=== PATIENT | female | born 1995 | race African-American/Black ===

== ENCOUNTER 2016-08-31 09:05 | Day surgery (SDC) | payer OTHER ==
[~2016-08-31] VITALS: Ht 154.9 cm; Wt 58.0 kg
[~2016-08-31 09:05] MED LIST: BACTROBAN OINTM22 GM TP; DIFLUCAN150 MG PO
[2016-08-31 10:04] VITALS: BP 122/71
[2016-08-31] MEDS ORDERED: MOTRIN800 MG PO (11:59)
[2016-08-31] MEDS ORDERED: DOXYCYCLINE MO100 M1 PO (12:01)
[2016-08-31 13:05] VITALS: BP 95/63
[2016-08-31 14:35] VITALS: BP 94/46
== END 2016-08-31 14:45 | disposition home or self-care (01) ==
LOC: SDC 09:05
PROC: 10D17ZZ Extraction of Products of Conception, Retained, Via Natural or Artificial Opening (ICD-10-PCS; principal; 2016-08-31)
DX: O02.1 Missed abortion (principal)
CPT/HCPCS: 86850; 86900; 86901; 88305; J1100; J1885; J2250; J2405; J2590; J3010

== ENCOUNTER 2016-09-29 17:25 | Observation (INO) | payer OTHER ==
[~2016-09-29] VITALS: Ht 157.5 cm; Wt 60.6 kg
[~2016-09-29 17:25] MED LIST changes: +DOXYCYCLINE MO100 M1 PO; +MOTRIN800 MG PO
[2016-09-29 18:38] LABS: HEMATOCRIT 35.6 % (36.0-46.0); MCH 22.7 PG (29.0-34.0); MCHC 32.9 G/DL (30.0-36.0); MEAN PLAT.VOLUME 10.1 uM^3 (9.5-12.4); PLATELET COUNT 277 K/uL (156-360); RBC DIS.WIDTH-CV 13.6 % (11.8-14.6); RBC DIS.WIDTH-SD 33.5 % (39-53); RED BLOOD COUNT 5.16 M/uL (3.80-5.20); WHITE BLOOD COUNT 10.2 K/uL (4.1-10.2)
[2016-09-29 18:56] LABS: CHLORIDE 108 mEq/L (99-109); POTASSIUM 3.8 mEq/L (3.7-5.4); SODIUM 140 mEq/L (136-147)
[2016-09-29 18:58] LABS: GLUCOSE 72 mg/dL (70-99)
[2016-09-29 19:00] LABS: ANION GAP 11 MEQ/L (2-14); TOTAL BILIRUBIN 0.7 mg/dL (0.0-1.0)
[2016-09-29 19:02] LABS: ALKALINE PHOSPHATASE 80 IU/L (3-129); GFR ESTIMATE (CALCULATED) > 59 mL/min/
[2016-09-29 19:03] LABS: UREA NITROGEN (BUN) 9 mg/dL (9-23)
[2016-09-29 19:12] LABS: QUANTITATIVE HCG 41.3 MIU/ML
[2016-09-29 19:16] LABS: ADD MIUA? YES; BILIRUBIN NEGATIVE; BLOOD NEGATIVE; COLOR YELLOW ((YELLOW)); GLUCOSE (STRIP) NEGATIVE; KETONES 80; LEUKOCYTES SMALL; NITRITE NEGATIVE; PROTEIN (STRIP) 30; SPECIFIC GRAVITY 1.028 (1.000-1.030); UROBILINOGEN 0.2 MG/DL (0.2-1.0)
[2016-09-29 19:18] LABS: BACTERIA RARE /HPF; CASTS NONE SEEN /LPF; CRYSTALS NONE SEEN; EPITHELIAL CELLS RARE /HPF; MUCUS 1+ /LPF; UCUL ADDED? NO; WHITE BLOOD CELLS 0-5 /HPF (0-5)
[2016-09-29 20:32] LABS: LIPASE 15 U/L (1.0-51.0)
[2016-09-30 01:27] LABS: HEMATOCRIT 32.6 % (36.0-46.0); MCH 22.1 PG (29.0-34.0); MCHC 31.9 G/DL (30.0-36.0); MCV 69.2 FL (83-99); MEAN PLAT.VOLUME 9.7 uM^3 (9.5-12.4); PLATELET COUNT 285 K/uL (156-360); RBC DIS.WIDTH-CV 13.5 % (11.8-14.6); RBC DIS.WIDTH-SD 33.2 % (39-53); RED BLOOD COUNT 4.71 M/uL (3.80-5.20); WHITE BLOOD COUNT 8.2 K/uL (4.1-10.2)
[2016-09-30 03:05] VITALS: BP 121/66
[2016-09-30 07:28] LABS: MCH 22.4 PG (29.0-34.0); MCHC 32.1 G/DL (30.0-36.0); MCV 69.7 FL (83-99); MEAN PLAT.VOLUME 10.3 uM^3 (9.5-12.4); PLATELET COUNT 228 K/uL (156-360); RBC DIS.WIDTH-CV 13.3 % (11.8-14.6); RBC DIS.WIDTH-SD 34.1 % (39-53); RED BLOOD COUNT 4.02 M/uL (3.80-5.20)
[2016-09-30 07:40] LABS: EOSINOPHIL (%) 0.4 % (0-5); LYMPHOCYTE COUNT 3.8 K/uL (1.0-2.8); MONOCYTE (%) 7.8 % (3-12); MONOCYTE COUNT 0.6 K/uL (0-0.8); NEUTROPHIL (%) 37.9 % (45-76); NEUTROPHIL COUNT 2.7 K/uL (1.8-6.4)
[2016-09-30 08:00] VITALS: BP 138/79
[2016-09-30] MEDS ORDERED: ENDOCET 5-3251 EACH PO (10:30)
[2016-09-30] MEDS ORDERED: IBUPROFEN800 MG PO (10:30)
[2016-09-30] MEDS ORDERED: FERROUS SULFAT325 MG PO (10:30)
[2016-09-30 13:44] VITALS: BP 98/61
[2016-09-30 14:42] LABS: HEMATOCRIT 32.4 % (36.0-46.0); MCHC 31.5 G/DL (30.0-36.0); MCV 69.8 FL (83-99); MEAN PLAT.VOLUME 10.1 uM^3 (9.5-12.4); PLATELET COUNT 250 K/uL (156-360); RBC DIS.WIDTH-CV 13.5 % (11.8-14.6); RBC DIS.WIDTH-SD 34.2 % (39-53); RED BLOOD COUNT 4.64 M/uL (3.80-5.20); WHITE BLOOD COUNT 7.2 K/uL (4.1-10.2)
[2016-09-30 14:58] LABS: EOSINOPHIL (%) 0 % (0-5); IMMATURE GRANULOCYTE (%) 0.1 % (0.0-0.7); LYMPHOCYTE COUNT 0.8 K/uL (1.0-2.8); MONOCYTE (%) 1.5 % (3-12); MONOCYTE COUNT 0.1 K/uL (0-0.8); NEUTROPHIL (%) 86.9 % (45-76); NEUTROPHIL COUNT 6.3 K/uL (1.8-6.4)
== END 2016-09-30 18:18 | disposition home or self-care (01) ==
LOC: EME 17:25 → EDOF 09-30 01:49 → 2EASTP 09-30 02:49
PROVIDERS: Obstetrics & Gynecology; Physician Assistant
DX: N83.201 Unspecified ovarian cyst, right side (principal); K66.1 Hemoperitoneum; Z82.49 Family history of ischemic heart disease and other diseases of the circulatory system; Z80.0 Family history of malignant neoplasm of digestive organs; Z83.49 Family history of other endocrine, nutritional and metabolic diseases
CPT/HCPCS: 74177; 76856; 80053; 81003; 82948; 83690; 84702; 85025; 85025 91; 85027; 86850; 86900; 86901; 86920; 99281; 99285; G0378; J1100; J1170; J1885; J2175; J2250; J2405; J3010; J7030; J7120; S0020

== ENCOUNTER 2016-10-27 19:24 | Emergency (ER) | payer OTHER ==
[~2016-10-27] VITALS: Ht 154.9 cm; Wt 62.2 kg
[~2016-10-27 19:24] MED LIST changes: +ENDOCET 5-3251 EACH PO; +FERROUS SULFAT325 MG PO; +IBUPROFEN800 MG PO
[2016-10-27 23:14] LABS: HEMATOCRIT 34.7 % (36.0-46.0); MCH 21.9 PG (29.0-34.0); MCV 68.6 FL (83-99); MEAN PLAT.VOLUME 11.2 uM^3 (9.5-12.4); PLATELET COUNT 286 K/uL (156-360); RBC DIS.WIDTH-CV 13.2 % (11.8-14.6); RBC DIS.WIDTH-SD 31.5 % (39-53); RED BLOOD COUNT 5.06 M/uL (3.80-5.20)
[2016-10-27 23:23] LABS: CHLORIDE 108 mEq/L (99-109); POTASSIUM 3.8 mEq/L (3.7-5.4); SODIUM 139 mEq/L (136-147)
[2016-10-27 23:26] LABS: GLUCOSE 89 mg/dL (70-99)
[2016-10-27 23:27] LABS: ANION GAP 9 MEQ/L (2-14); TOTAL BILIRUBIN 0.4 mg/dL (0.0-1.0)
[2016-10-27 23:29] LABS: ALKALINE PHOSPHATASE 85 IU/L (3-129); GFR ESTIMATE (CALCULATED) > 59 mL/min/
[2016-10-27 23:30] LABS: UREA NITROGEN (BUN) 11 mg/dL (9-23)
[2016-10-27 23:38] LABS: QUANTITATIVE HCG < 4.0 MIU/ML
[2016-10-28 00:09] LABS: EOSINOPHIL (%) 0.8 % (0-5); EOSINOPHIL COUNT 0.1 K/uL (0-0.3); HEMATOLOGY COMMENT 1 SMEAR COMPATIBLE; IMMATURE GRANULOCYTE (%) 0.1 % (0.0-0.7); IMMATURE GRANULOCYTE COUNT 0.1 K/uL; LYMPHOCYTE COUNT 5.4 K/uL (1.0-2.8); MONOCYTE (%) 8.7 % (3-12); MONOCYTE COUNT 0.8 K/uL (0-0.8); NEUTROPHIL (%) 30.7 % (45-76); NEUTROPHIL COUNT 2.8 K/uL (1.8-6.4); PLAT.SUFFICIENCY ADEQUATE
[2016-10-28 01:09] LABS: ADD MIUA? YES; BILIRUBIN NEGATIVE; BLOOD NEGATIVE; COLOR STRAW ((YELLOW)); GLUCOSE (STRIP) NEGATIVE; KETONES 5; LEUKOCYTES SMALL; NITRITE NEGATIVE; PROTEIN (STRIP) NEGATIVE; SPECIFIC GRAVITY 1.006 (1.000-1.030); UROBILINOGEN 0.2 MG/DL (0.2-1.0)
[2016-10-28 01:24] LABS: BACTERIA RARE /HPF; EPITHELIAL CELLS RARE /HPF; MUCUS TRACE /LPF; RED BLOOD CELLS 0-5 /HPF (0-5); UCUL ADDED? NO; WHITE BLOOD CELLS 0-5 /HPF (0-5)
[2016-10-28] MEDS ORDERED: ZOFRAN ODT4 MG PO (02:04)
[2016-10-28] MEDS ORDERED: PERCOCET 5/31 TABLET PO (02:04)
[2016-10-28 02:13] VITALS: BP 106/64
== END 2016-10-28 02:17 | disposition home or self-care (01) ==
LOC: EME 19:24
PROVIDERS: Physician Assistant
DX: R10.2 Pelvic and perineal pain (principal)
CPT/HCPCS: 76856; 80053; 81003; 84702; 85025; 99281; 99285; J1885; J2270; J2405; J7030

== ENCOUNTER 2017-07-23 00:24 | Emergency (ER) | payer OTHER ==
[~2017-07-23] VITALS: Ht 154.9 cm; Wt 70.5 kg
[~2017-07-23 00:24] MED LIST changes: +MACROBID100 MG PO; +MOTRIN600 MG PO; +PERCOCET 5/31 TABLET PO; +PYRIDIUM200 MG PO; +ZOFRAN ODT4 MG PO
[2017-07-23] MEDS ORDERED: VALTREX1000 MG PO (01:19)
[2017-07-23 01:51] VITALS: BP 148/89
== END 2017-07-23 01:53 | disposition home or self-care (01) ==
LOC: EME 00:24
DX: A60.00 Herpesviral infection of urogenital system, unspecified (principal)
CPT/HCPCS: 99281; 99284

== ENCOUNTER 2017-07-24 18:45 | Emergency (ER) | payer OTHER ==
[~2017-07-24] VITALS: Ht 154.9 cm; Wt 69.2 kg
[~2017-07-24 18:45] MED LIST changes: +VALTREX1000 MG PO
[2017-07-24 18:56] VITALS: BP 121/73
== END 2017-07-24 19:57 | disposition left against medical advice (07) ==
LOC: EME 18:45
DX: M79.604 Pain in right leg (principal); M79.605 Pain in left leg; M79.672 Pain in left foot; M79.671 Pain in right foot; Z53.21 Procedure and treatment not carried out due to patient leaving prior to being seen by health care provider

== ENCOUNTER 2017-07-26 01:22 | Emergency (ER) | payer OTHER ==
[~2017-07-26] VITALS: Ht 154.9 cm; Wt 71.1 kg
[2017-07-26 03:21] LABS: HEMATOCRIT 34.2 % (36.0-46.0); MCH 22.3 PG (29.0-34.0); PLATELET COUNT 275 K/uL (156-360); RBC DIS.WIDTH-CV 13.7 % (11.8-14.6); RBC DIS.WIDTH-SD 35.3 % (39-53); RED BLOOD COUNT 4.75 M/uL (3.80-5.20); WHITE BLOOD COUNT 7.5 K/uL (4.1-10.2)
[2017-07-26 03:32] LABS: CHLORIDE 110 mEq/L (99-109); SODIUM 139 mEq/L (136-147)
[2017-07-26 03:33] LABS: MAGNESIUM 1.8 mg/dL (1.3-2.7)
[2017-07-26 03:35] LABS: GLUCOSE 104 mg/dL (70-99)
[2017-07-26 03:36] LABS: ANION GAP 6 MEQ/L (2-14)
[2017-07-26 03:37] LABS: TOTAL BILIRUBIN 0.1 mg/dL (0.0-1.0)
[2017-07-26 03:38] LABS: ALKALINE PHOSPHATASE 79 IU/L (3-129)
[2017-07-26 03:39] LABS: GFR ESTIMATE (CALCULATED) > 59 mL/min/
[2017-07-26 03:40] LABS: UREA NITROGEN (BUN) 8 mg/dL (9-23)
[2017-07-26 03:48] LABS: QUANTITATIVE HCG < 4.0 MIU/ML
[2017-07-26 04:20] LABS: ABS NEUTROPHIL COUNT 1.8; ATYPICAL LYMPHOCYTE 27.4 %; EOSINOPHIL ABS CT 0.2; EOSINOPHILS 2.7 % (0-5.0); HELMET CELLS 1+; HYPOCHROMASIA 1+; INSTRUMENT ABS NEUTROPHIL CT 2.5 K/uL; LYMPHOCYTES 41.6 % (15.0-45.0); MACROCYTES 1+; PLAT.SUFFICIENCY ADEQUATE; POLYCHROMASIA 1+; SEG.NEUTROPHILS 23.9 % (46.0-76.0); TARGET CELLS 1+
[2017-07-26] MEDS ORDERED: NORCO 5/3251 TABLET PO (05:02)
[2017-07-26] MEDS ORDERED: LMX 430 GM TP (05:02)
[2017-07-26] MEDS ORDERED: FAMCICLOVIR250 MG PO (05:03)
[2017-07-26 05:10] VITALS: BP 96/55
== END 2017-07-26 05:17 | disposition home or self-care (01) ==
LOC: EME 01:22
PROVIDERS: Emergency Medicine
DX: M79.671 Pain in right foot (principal); M79.672 Pain in left foot; A60.00 Herpesviral infection of urogenital system, unspecified
CPT/HCPCS: 80053; 83735; 84702; 85025; 99281; 99284

== ENCOUNTER 2017-09-23 11:36 | Emergency (ER) | payer OTHER ==
[~2017-09-23] VITALS: Ht 160 cm; Wt 71.2 kg
[~2017-09-23 11:36] MED LIST changes: +FAMCICLOVIR250 MG PO; +LMX 430 GM TP; +NORCO 5/3251 TABLET PO
[2017-09-23] MEDS ORDERED: ZITHROMAX Z-PA250 MG PO (13:41)
[2017-09-23] MEDS ORDERED: DELTASONE20 M1 PO (13:41)
[2017-09-23 13:48] VITALS: BP 117/75
== END 2017-09-23 13:49 | disposition home or self-care (01) ==
LOC: EME 11:36
PROVIDERS: Physician Assistant
DX: J20.9 Acute bronchitis, unspecified (principal)
CPT/HCPCS: 71046; 81025; 99281; 99284

== ENCOUNTER 2017-11-28 18:43 | Emergency (ER) | payer OTHER ==
[~2017-11-28] VITALS: Ht 157.5 cm; Wt 71.6 kg
[~2017-11-28 18:43] MED LIST changes: +DELTASONE20 M1 PO; +ZITHROMAX Z-PA250 MG PO
[2017-11-28 20:20] LABS: CHLORIDE 105 mEq/L (99-109); POTASSIUM 3.9 mEq/L (3.7-5.4); SODIUM 136 mEq/L (136-147)
[2017-11-28 20:22] LABS: APPEARANCE SL.HAZY ((CLEAR)); BILIRUBIN NEGATIVE; BLOOD NEGATIVE; COLOR YELLOW ((YELLOW)); GLUCOSE (STRIP) NEGATIVE; KETONES NEGATIVE; LEUKOCYTES TRACE; NITRITE NEGATIVE; PROTEIN (STRIP) 30; UROBILINOGEN 0.2 MG/DL (0.2-1.0)
[2017-11-28 20:23] LABS: GLUCOSE 88 mg/dL (70-99); TOTAL PROTEIN 7.1 g/dL (6.4-8.3)
[2017-11-28 20:24] LABS: TOTAL BILIRUBIN 0.1 mg/dL (0.0-1.0)
[2017-11-28 20:26] LABS: ALKALINE PHOSPHATASE 70 IU/L (3-129); CREATININE 0.7 mg/dL (0.6-1.3); GFR ESTIMATE (CALCULATED) > 59 mL/min/
[2017-11-28 20:27] LABS: HEMATOCRIT 35.2 % (36.0-46.0); HEMOGLOBIN 11.2 G/DL (11.9-15.5); MCH 22.5 PG (29.0-34.0); MCHC 31.8 G/DL (30.0-36.0); MCV 70.7 FL (83-99); PLATELET COUNT 249 K/uL (156-360); RBC DIS.WIDTH-CV 12.8 % (11.8-14.6); RBC DIS.WIDTH-SD 32.3 % (39-53); RED BLOOD COUNT 4.98 M/uL (3.80-5.20); UREA NITROGEN (BUN) 9 mg/dL (9-23); WHITE BLOOD COUNT 9.4 K/uL (4.1-10.2)
[2017-11-28 20:28] LABS: AST (GOT) 15 IU/L (2-34)
[2017-11-28 20:29] LABS: ALT (GPT) 14 IU/L (3-49)
[2017-11-28 20:52] LABS: QUANTITATIVE HCG 182065.6 MIU/ML
[2017-11-28 20:52] LABS: BACTERIA NONE SEEN /HPF; EPITHELIAL CELLS 2+ /HPF; MUCUS TRACE /LPF; RED BLOOD CELLS 0-5 /HPF (0-5); UCUL ADDED? NO; WHITE BLOOD CELLS NONE SEEN /HPF (0-5)
[2017-11-28 21:13] LABS: LIPASE 35 U/L (1.0-51.0)
[2017-11-29 01:14] VITALS: BP 120/88
== END 2017-11-29 01:16 | disposition home or self-care (01) ==
LOC: EME 18:43
DX: O26.891 Other specified pregnancy related conditions, first trimester (principal); R10.2 Pelvic and perineal pain; Z3A.12 12 weeks gestation of pregnancy; Z87.42 Personal history of other diseases of the female genital tract
CPT/HCPCS: 76801; 80053; 81003; 83690; 84702; 85027; 86900; 86901; 99281; 99284

== ENCOUNTER 2017-12-29 18:50 | Emergency (ER) | payer SELFPAY ==
[~2017-12-29] VITALS: Ht 157.5 cm; Wt 71.9 kg
[2017-12-29 18:55] VITALS: BP 152/91
[2017-12-29] MEDS ORDERED: BACTROBAN CREAM15 GM TP (19:22)
== END 2017-12-29 19:46 | disposition home or self-care (01) ==
LOC: EME 18:50
DX: O99.712 Diseases of the skin and subcutaneous tissue complicating pregnancy, second trimester (principal); L73.9 Follicular disorder, unspecified; Z3A.16 16 weeks gestation of pregnancy
CPT/HCPCS: 99281; 99283

== ENCOUNTER 2018-03-05 22:26 | Outpatient (CLI) | payer OTHER ==
[~2018-03-05 22:26] MED LIST changes: +BACTROBAN CREAM15 GM TP
[2018-03-05 22:52] VITALS: BP 107/66
[2018-03-05 23:55] LABS: APPEARANCE CLEAR ((CLEAR)); BILIRUBIN NEGATIVE; BLOOD NEGATIVE; COLOR YELLOW ((YELLOW)); GLUCOSE (STRIP) NEGATIVE; KETONES NEGATIVE; LEUKOCYTES SMALL; NITRITE NEGATIVE; PROTEIN (STRIP) NEGATIVE; SPECIFIC GRAVITY 1.014 (1.000-1.030); UROBILINOGEN 0.2 MG/DL (0.2-1.0)
[2018-03-05 23:58] LABS: BACTERIA RARE /HPF; EPITHELIAL CELLS 1+ /HPF; MUCUS TRACE /LPF; RED BLOOD CELLS 0-5 /HPF (0-5); UCUL ADDED? YES
== END 2018-03-05 23:45 | disposition home or self-care (01) ==
LOC: LDRP-OP → 2WEST 22:27 → LDRP-OP 07-14 08:45
PROVIDERS: Advanced Practice Midwife
DX: O26.892 Other specified pregnancy related conditions, second trimester (principal); Z3A.25 25 weeks gestation of pregnancy; R10.9 Unspecified abdominal pain
CPT/HCPCS: 59025; 81003; 87086; G0378